=== PATIENT | female | born 1960 | race Caucasian/White ===

== ENCOUNTER 2018-02-10 09:09 | Day surgery (SDC) | payer BC ==
[~2018-02-10] VITALS: Ht 160.7 cm; Wt 65.8 kg
[~2018-02-10 09:09] MED LIST: ADVIL,NUPRIN,M200 MG PO
[2018-02-10 09:32] VITALS: BP 118/62
[2018-02-10 13:10] VITALS: BP 116/76
[2018-02-10 13:55] VITALS: BP 120/58
== END 2018-02-10 14:00 | disposition home or self-care (01) ==
LOC: SDC 09:09
PROC: 0UDB7ZX Extraction of Endometrium, Via Natural or Artificial Opening, Diagnostic (ICD-10-PCS; principal; 2018-02-10)
PROC: 0UBC7ZX Excision of Cervix, Via Natural or Artificial Opening, Diagnostic (ICD-10-PCS; principal; 2018-02-10)
DX: N87.0 Mild cervical dysplasia (principal); F17.210 Nicotine dependence, cigarettes, uncomplicated; Z82.49 Family history of ischemic heart disease and other diseases of the circulatory system; Z83.3 Family history of diabetes mellitus; Z88.5 Allergy status to narcotic agent; Z91.013 Allergy to seafood
CPT/HCPCS: 84702; 88307; 88341 TC; 88342 TC; J2250; J2405; J3010